=== PATIENT | male | born 2000 | race Caucasian/White ===

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

== ENCOUNTER 2021-01-04 03:52 | Emergency (ER) | payer OTHER ==
[~2021-01-04] VITALS: Ht 177.8 cm; Wt 81.8 kg
[~2021-01-04 03:52] MED LIST: IBUP80TA PO
[2021-01-04] MEDS ORDERED: NS 1,000 ML IV ONE (04:05)
[2021-01-04 04:20] LABS: BASO % 0.7 % (0.0-1.0); EOS # 0.1 10^3/uL (0.0-0.5); EOS % 2.2 % (0.0-3.0); HEMATOCRIT 39.4 % (42.0-52.0); HEMOGLOBIN 14.3 g/dl (13.5-17.5); LYMPH # 2.5 10^3/uL (1.5-5.0); LYMPH % 44.7 % (24.0-44.0); MEAN CORPUSCULAR HEMOGLOBIN 32.8 pg (27.0-33.0); MEAN CORPUSCULAR HGB CONC 36.3 g/dl (32.0-36.5); MEAN CORPUSCULAR VOLUME 90.4 fl (80.0-96.0); MONO # 0.7 10^3/uL (0.0-0.8); MONO % 12.2 % (2.0-8.0); NEUTROPHILS # 2.2 10^3/uL (1.5-8.5); NEUTROPHILS % 39.8 % (36.0-66.0); PLATELET COUNT, AUTOMATED 252 10^3/uL (150-450); RED BLOOD COUNT 4.36 10^6/uL (4.30-6.10); WHITE BLOOD COUNT 5.6 10^3/uL (4.0-10.0)
[2021-01-04 04:50] LABS: OSMOLALITY SERUM 299 MOSM/KG (275-295)
[2021-01-04 05:05] LABS: ACETAMINOPHEN LEVEL < 2.0 UG/ML (10.0-30.0); ALBUMIN 3.7 GM/DL (3.2-5.2); ALT/SGPT 40 U/L (12-78); BILIRUBIN,DIRECT < 0.1 MG/DL (0.0-0.2); BILIRUBIN,TOTAL 0.2 MG/DL (0.2-1.0); BLOOD UREA NITROGEN 15 MG/DL (7-18); CALCIUM LEVEL 8.8 MG/DL (8.5-10.1); CARBON DIOXIDE LEVEL 27 MEQ/L (21-32); CHLORIDE LEVEL 111 MEQ/L (98-107); CPK CREATINE PHOSPHOKINASE 637 U/L (39-308); CREATININE FOR GFR 1.05 MG/DL (0.70-1.30); ETHYL ALCOHOL (ETHANOL) < 0.003 % (0.000-0.010); GLUCOSE, FASTING 109 MG/DL (70-100); SALICYLATE LEVEL < 1.7 MG/DL (5.0-30.0); SODIUM LEVEL 144 MEQ/L (136-145); TOTAL PROTEIN 6.6 GM/DL (6.4-8.2)
--- NOTE | 2021-01-04 05:07 | REPVR ---
PROCEDURE INFORMATION: Exam: CT Head Without Contrast Exam date and time: 01/04/2021 4:14 AM Age: 20 years old Clinical indication: Injury or trauma; Fall; Blunt trauma (contusions or hematomas); Additional info: Drug overdose TECHNIQUE: Imaging protocol: Computed tomography of the head without contrast. Radiation optimization: All CT scans at this facility use at least one of these dose optimization techniques: automated exposure control; mA and/or kV adjustment per patient size (includes targeted exams where dose is matched to clinical indication); or iterative reconstruction. COMPARISON: No relevant prior studies available. FINDINGS: Brain: Normal. No hemorrhage. Unremarkable white matter. No mass effect. Cerebral ventricles: No ventriculomegaly. Paranasal sinuses: Visualized sinuses are unremarkable. No fluid levels. Mastoid air cells: Visualized mastoid air cells are well aerated. Bones/joints: Unremarkable. No acute fracture. Soft tissues: Unremarkable. IMPRESSION: No acute intracranial abnormality. Electronically signed by: Ivy Foster On 01/04/2021 05:06:53 AM
--- NOTE | 2021-01-04 05:08 | REPVR ---
PROCEDURE INFORMATION: Exam: CT Cervical Spine Without Contrast Exam date and time: 01/04/2021 4:14 AM Age: 20 years old Clinical indication: Injury or trauma; Fall; Blunt trauma; Additional info: Drug overdose TECHNIQUE: Imaging protocol: Computed tomography images of the cervical spine without contrast. Radiation optimization: All CT scans at this facility use at least one of these dose optimization techniques: automated exposure control; mA and/or kV adjustment per patient size (includes targeted exams where dose is matched to clinical indication); or iterative reconstruction. COMPARISON: No relevant prior studies available. FINDINGS: Bones/joints: No acute fracture. Normal alignment. Discs/Spinal canal/Neural foramina: No significant disc protrusion. No severe spinal canal stenosis. No significant neural foraminal narrowing. Lungs: Lung apices are normal. Soft tissues: Unremarkable. IMPRESSION: No acute findings. Electronically signed by: Ivy Foster On 01/04/2021 05:08:24 AM
[2021-01-04 06:41] LABS: AMPHETAMINES LEVEL URINE NEGATIVE (NEGATIVE); BARBITURATES URINE NEGATIVE (NEGATIVE); BENZODIAZEPINES URINE NEGATIVE (NEGATIVE); CANNABINOIDS URINE NEGATIVE (NEGATIVE); COCAINE METABOLITE URINE NEGATIVE (NEGATIVE); METHADONE URINE NEGATIVE (NEGATIVE); OPIATES URINE NEGATIVE (NEGATIVE); PHENCYCLIDINE URINE NEGATIVE (NEGATIVE)
[2021-01-04 12:31] VITALS: BP 152/72
--- NOTE | 2021-01-04 19:30 | ECGEPIP ---
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
== END 2021-01-04 13:16 | disposition home or self-care (01) ==
LOC: M ED 03:52
DX: F43.0 Acute stress reaction (principal); Z63.0 Problems in relationship with spouse or partner

== ENCOUNTER 2021-01-16 20:10 | Emergency (ER) | payer OTHER ==
[~2021-01-16] VITALS: Ht 177.8 cm; Wt 88.2 kg
[2021-01-16] MEDS ORDERED: SERT25TA85 PO (20:19)
[2021-01-16] MEDS ORDERED: NS 1,000 ML IV ONE (20:45)
[2021-01-16 21:24] LABS: AMPHETAMINES LEVEL URINE NEGATIVE (NEGATIVE); BARBITURATES URINE NEGATIVE (NEGATIVE); BENZODIAZEPINES URINE NEGATIVE (NEGATIVE); CANNABINOIDS URINE NEGATIVE (NEGATIVE); COCAINE METABOLITE URINE NEGATIVE (NEGATIVE); METHADONE URINE NEGATIVE (NEGATIVE); OPIATES URINE NEGATIVE (NEGATIVE); PHENCYCLIDINE URINE NEGATIVE (NEGATIVE)
[2021-01-16 21:29] LABS: HEMATOCRIT 42.3 % (42.0-52.0); HEMOGLOBIN 15.2 g/dl (13.5-17.5); MEAN CORPUSCULAR HEMOGLOBIN 32.1 pg (27.0-33.0); MEAN CORPUSCULAR HGB CONC 35.9 g/dl (32.0-36.5); MEAN CORPUSCULAR VOLUME 89.2 fl (80.0-96.0); PLATELET COUNT, AUTOMATED 315 10^3/uL (150-450); RED BLOOD COUNT 4.74 10^6/uL (4.30-6.10); WHITE BLOOD COUNT 8.1 10^3/uL (4.0-10.0)
[2021-01-16 22:00] LABS: ACETAMINOPHEN LEVEL < 2.0 UG/ML (10.0-30.0); ALBUMIN 4.2 GM/DL (3.2-5.2); ALT/SGPT 30 U/L (12-78); BILIRUBIN,DIRECT < 0.1 MG/DL (0.0-0.2); BILIRUBIN,TOTAL 0.4 MG/DL (0.2-1.0); BLOOD UREA NITROGEN 19 MG/DL (7-18); CALCIUM LEVEL 8.9 MG/DL (8.5-10.1); CARBON DIOXIDE LEVEL 29 MEQ/L (21-32); CHLORIDE LEVEL 105 MEQ/L (98-107); CREATININE FOR GFR 1.29 MG/DL (0.70-1.30); ETHYL ALCOHOL (ETHANOL) < 0.003 % (0.000-0.010); GLUCOSE, FASTING 85 MG/DL (70-100); POTASSIUM SERUM 3.9 MEQ/L (3.5-5.1); SALICYLATE LEVEL < 1.7 MG/DL (5.0-30.0); SODIUM LEVEL 140 MEQ/L (136-145); TOTAL PROTEIN 7.2 GM/DL (6.4-8.2)
[2021-01-16 22:44] LABS: RSV AMPLIFICATION NEGATIVE (NEGATIVE)
[2021-01-17 09:14] VITALS: BP 130/67
--- NOTE | 2021-01-18 05:42 | ECGEPIP ---
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
--- NOTE | 2021-01-19 12:48 | MHIPNPDOC ---
[facility] Progress Note Progress Note DATE OF SERVICE: 01/17/21 LATE ENTRY: 01/19/21 This scientific technical writer discussed patient's case with ED staff member. The patient presented with suicidal ideation without a plan, was under pressure due to multiple stressors, pressented with depression and anxiety and had taken extra medications after argument with . This scientific technical writer recommended admission but [facility] was at full capacity, so, patient was transferred to [facility] were he was accepted for admission. Vital Signs Vital Signs Date Time Temp Pulse Resp B/P (MAP) Pulse Ox O2 Delivery O2 Flow Rate FiO2 01/17/21 09:14 98.7 84 16 130/67 (88) 98 Room Air Allergies Coded Allergies: No Known Allergies (Unverified , 08/23/20) BENJAMIN MADDOX MD Jan 19, 2021 12:48
== END 2021-01-17 09:18 | disposition short-term general hospital (02) ==
LOC: M ED 20:10
DX: R45.851 Suicidal ideations (principal); T43.222A Poisoning by selective serotonin reuptake inhibitors, intentional self-harm, initial encounter; F33.9 Major depressive disorder, recurrent, unspecified; F17.210 Nicotine dependence, cigarettes, uncomplicated; Z79.899 Other long term (current) drug therapy

== ENCOUNTER 2021-03-28 22:22 | Emergency (ER) | payer OTHER ==
[~2021-03-28 22:22] MED LIST changes: +SERT25TA85 PO
--- OUTSIDE RECORDS SUMMARY | 2021-03-28 22:25 | CCD ---
Author Author [facility] Address Unknown Phone Unavailable Care Team Providers Care Contact Center Assistant Name Role Phone YG JALLOH MD Unavailable Unavailable BILALYG MD Unavailable Unavailable BILALYG MD Unavailable Unavailable BILALYG MD Unavailable Unavailable BILALYG MD Unavailable Unavailable BILALYG MD Unavailable Unavailable BILALEVELIOMACallie LAI Unavailable Unavailable BILAL, EVELIOMACallie LAI Unavailable Unavailable BILALEVELIOMACallie LAI Unavailable Unavailable BILAL, EVELIOMACallie LAI Unavailable Unavailable Rye Reyes Unavailable Unavailable Rey Reyes Unavailable Unavailable Rey Reyes Unavailable Unavailable Re-disclosure Warning The records that you are about to access may contain information from federally-assisted alcohol or drug abuse programs. If such information is present, then the following federally mandated warning applies: This information has been disclosed to you from records protected by federal confidentiality rules (42 CFR part 2). The federal rules prohibit you from making any further disclosure of this information unless further disclosure is expressly permitted by the written consent of the person to whom it pertains or as otherwise permitted by 42 CFR part 2. A general authorization for the release of medical or other information is NOT sufficient for this purpose. The Federal rules restrict any use of the information to criminally investigate or prosecute any alcohol or drug abuse patient.The records that you are about to access may contain highly sensitive health information, the redisclosure of which is protected by Article 27-F of the [facility] Public Health law. If you continue you may have access to information: Regarding HIV / AIDS; Provided by facilities licensed or operated by the [facility] Office of Mental Health; or Provided by the [facility] Office for People With Developmental Disabilities. If such information is present, then the following [facility] mandated warning applies: This information has been disclosed to you from confidential records which are protected by state law. State law prohibits you from making any further disclosure of this information without the specific written consent of the person to whom it pertains, or as otherwise permitted by law. Any unauthorized further disclosure in violation of state law may result in a fine or long term sentence or both. A general authorization for the release of medical or other information is NOT sufficient authorization for further disc losure. Allergies and Adverse Reactions Type Description Substance Reaction Status Data Source(s ) Drug allergy No Known Allergies No Known Allergies [facility] Encounters Encounter Providers Location Date Indications Data Source(s ) Inpatient Attender: YG JALLOH MDAdmitter: YG JALLOH MD 01/17/2021 09:16:00 AM EDT - 01/20/2021 02:00:00 PM EDT Suicidal ideation [facility] Suicidal ideation Patient discharged. Outpatient Attender: YG Chen tter: YG JALLOH MDConsultant: YG JALLOH MD 01/17/2021 09:16:00 AM EDT Suicidal ideation [facility] Suicidal ideation Outpatient Attender: YG Chen tter: YG JALLOH MDConsultant: YG JALLOH MD 01/17/2021 09:16:00 AM EDT Suicidal ideation [facility] Suicidal ideation Outpatient Attender: YG Chen tter: YG JALLOH MDConsultant: YG JALLOH MD 01/17/2021 09:16:00 AM EDT Suicidal ideation [facility] Suicidal ideation Outpatient Attender: Rey Reyes PAAdmitter: YG JALLOH MDConsultant: YG JALLOH MD 01/17/2021 09:16:00 AM EDT Suicidal ideation [facility] Suicidal ideation Immunizations Vaccine Date Status Description Data Source(s) COVID-19 VACCINE Moderna 10/13/2020 12:00:00 AM EDT completed [facility] Vaccine Series Complete: YESThis Data wa s Submitted to [facility] Via [employer]. COVID-19 VACCINE Moderna 09/15/2020 12:00:00 AM EDT completed [facility] Vaccine Series Complete: NOThis Data was Submitted to [facility] Via [employer]. Medications No Information Insurance Providers Payer name Policy type / Coverage type Policy ID Covered constitution party ID Covered constitution party's relationship to miner Policy Miner Plan Information SELF PAY [facility] [id number] SP [id number] [facility] ACTIVE DUTY [id number] SP [id number] Problems, Conditions, and Diagnoses Code Display Name Description Problem Type Effective Dates Data Source(s) F33.2 Major depressive disorder, recurrent sev ere without psychotic features F33.2 - Major depressive disorder, recurrent severe without psychotic features Diagnosis 01/17/2021 09:16:00 AM EDT [facility] 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 F41.8 - Other specified anxiety disorders Diagnosis 01/17/2021 09:16:00 AM EDT [facility] Surgeries/Procedures No Information Results ID Date Data Source [id number] 01/18/2021 02:37:00 PM EDT [facility] [address] [place] [address] HEALTH INFORMATION MANAGEMENT [facility] Psychosocial Summary : [id number] Signed Patient: Steve Galvin Acct:[id number] Unit : [id number] : 2000 Loc: IN Room/Bed: 920-A Age/Sex: 20 / M ADM Date: 01/17/21 cc: General/History - Presenting Problem Presenting Problem: Presenting Problem: Client is a 20-year-old male who presents to [facility] due to worsening depression and anxiety and feelings of being overwhelmed. Client was an argument with and attempted to take hard and 25 mg of sertraline to calm down, took himself to the hospital, hospital transferred to [facility]. Client reports feelings of depression, anxiety, and hopelessness, but reports feeling better at the time of writing. Client reports triggers being wifecontinuously threatening to leave him as a way to leverage his housing against him. Client states he may have reconciled, client is requesting discharge. Background: Client is currently in the , client has a , 20 years old, currently lives [facility]. Client was born and raised in [place], raised by parents, with no abuse or neglect, is a highschool graduate. - Collateral Information Collateral Information: Collateral:. Senior Database Engineer spoke to nurse to update chain of command of the client status. Senior Database Engineer attempted to call clients Captain Gilmore , left a message. Anahi Galvin. [phone] - Social/Educational History What is the Highest Grade You Completed in School?: 12 What is You Current/Last Place of Employment?: [employer] Do You Have Any Current Legal Issues?: No Any History?: Yes - Outside Activity Are You Involved in Any Community Service?: No Do You Consider Your self a Social Person?: Yes Any Interests or Hobbies you do for fun?: Games, Music, Travel Are you part of any pentecostal/spirtu al community?: Yes (Oriental Orthodox) - Current Living/Relationship History Current Living Arrangement: House Who Do You Live With?: OK to Return Home: Yes Weapons in household: No Currently in a Relationship?: Yes Any Children?: 0 - Family History Where Were You Born/Raised[place] Who Was in Home?: Mother How is Your Relationship Now with Family Members?: Good relationship. Was there Any Abuse/Neglect Growing Up?: No Psychiatric History - Primary Care/Psychiatrist Primary Care Physician: rachel mcdonald Psychiatric Treatment History: None Patient is currently on medications?: Yes Patient has a safe medication plan?: Yes Confirmation of safe medication administration completed? (: Yes MMSI-SA Referral Indicated: No MMSI-SA Referral Completed: No On Going Medical Issues: No Sexual/Substance History - Sexual History Sexual Orientation: Heterosexual Number of Sexual Partners in Last 12 Months: 1 Do You Ever Feel Your Sexual Behavior is Abnormal?: Yes (Low sex drive.) Do You Ever Feel Badly About Your Sexual Behavior?: No Any History of STDs?: None Have You Ever Been Tested for HIV?: Yes - Current Substance Abuse Current Substance Abuse Identified (w/in last 12 months): No - Past Substance Abuse History Past Substance Abuse Identified (greater than 12 months ago): Yes (ETOH) - Discussion The quantity frequency of alcohol consumed by pt in the na: N/A The overall severity of the substance use was discussed: N/A Negative physical,emotional,and occupational consequences of: N/A Trauma History - Abuse/Neglect/Exploitation Is there a history of Abuse or Neglect or Exploitation?: No Risk Assessment - Risk to Self Level of Risk to self: No Risk Contract for Safety: No Do you have thoughts of hurting yourself?: No Hearing Voices Telling Him/Her to Kill Self: No Family hx of suicide attempt: No - Risk to Others Evaluation of Risk: No Risk Do you have thoughts of hurting someone other than yourself?: No History of Violence: No Ever Have Thoughts of Setting Fires: No Does Client Have Fantasies/Obsessive Thoughts About Others: No - Reducing Risk Factors Factors Reducing Risk: Complies with Tx/Meds, No Substance Abuse Mental Status Treatment - Mental Status Mental Status: alert, oriented x 3, depressed affect Was Mini-Mental Status Exam Completed?: Yes If completed what was the Mini-Mental Status Exam Score?: 30 - Recommendations Recommendations for Treatment: Client will return to [facility] for post discharge mental health. Signed By:Vasquez Sanders <<Signature on File>> Signed Date/Time: 01/18/21 6748 Co-Signer: Tessa HICKMAN PAPER CUP HANDLE MACHINE OPERATOR Student Maura Co-Signed Date/Time: 01/19/21 0824 Initializing User: Vasquez LUCAS [id number] Name Value Range Interpretation Code Description Data Thelma rce(s) Supporting Document(s) ID Date Data Source [id number] 01/17/2021 06:09:00 [place] [address] HEALTH INFORMATION MANAGEMENT Consultation : [id number] Signed Patient: Steve Galvin Acct:[id number] Unit : [id number] : 2000 Loc: [facility] Room/Bed: 920-A Age/Sex: 20 / M ADM Date: 01/17/21 cc: Jose Cruz Caraballo MD,Rey PATTERSON [facility] Consult Date of Consult: 01/17/21 Reason for Consult: [facility] Attending requesting consult: Dr Paul Hospitalist attending in charge: Dr Caraballo History of Present Illness: Patient is a 20-year-old white male with sole medical history consistingof depression[place] Patient states that last night he got into an argument with his , felt unwell, took 5 times the dose that he normally takes of his sertraline, instead of 25 mg took 125 mg, when driving, took himself to the hospital at which point he was deemed to be unsafe to go home, [facility] and [facility]. Patient states that he did not try to kill himself or hurt himself but just was looking for help. Patient denies feeling physically unwell. In the admitting facility patient had blood work, vitals that were grossly within normal limits. Patient had an EKG which was slightly abnormal with inverted T-waves. QT interv al 390. Allergies No Known Allergies Allergy (Unverified 01/17/21 12:21) Home Medications Medication Instructions Recorded sertraline 25 mg tablet 25 mg PO DAILY 01/17/21 Social History [place] History of Smoking/Tobacco Use: Current Some Day Smoker Tobacco Product: Reports Cigarettes Alcohol use: Reports None Drug use: Reports None Occupation: Lives with: Reports Family PMH/PSH Medical History (Updated 01/17/21 @ 18:26 by LEONARDO Cerda) Depression with anxiety Family History (Updated 01/17/21 @ 18:22 by LEONARDO Cerda) Other Patient denies significant medical history Subjective-consult Review of Systems: ROS: Denies fevers, chills, eye pain, blurry vision, discharge from the eyes, denies earache, epistaxis, nasal congestion, chest pain, palpitations, syncope, cough, shortness of breath, belly pain, nausea, vomiting, diarrhea, dysuria, headache, dizziness, numbness, tingling, weakness, neck pain, back pain, bruising, itching, laceration, rash, anxiety, depression Objective Vitals and I O: I O (Last 24 Hours) 01/15/21 01/16/21 01/17/21 23:59 23:59 23:59 Other: Weight 87.4 kg Vital Signs (Last 8 Hours) Temp Pulse Resp BP Pulse Ox 01/17/21 11:55 98.4 F 65 16 127/60 97 Exam: General: Very pleasant, 20-year-old white male, nontoxic appearing, in no acute distress, alert and oriented, sitting on bed, speaking in complete sentences Head: Normocephalic, atraumatic Eyes: Conjunctiva clear, sclera non-icteric, EOM intact, PERRL Nose: External nose normal normal Ears: External ears normal Oropharynx: Non erythematous oropharynx. Patent airway Neck: Trachea midline, full ROM, supple Heart: regular rate and rhythm, no murmur or gallop Lungs: Clear to auscultation, moving air well Back: Full ROM Extremities: Full ROM. No edema noted Skin: Dry, intact, pink, warm Neurologic: Alert, gait normal, sensation normal, fluent speech, strength 5/5 all extremities, oriented x3, CN 2-12 normal Psychiatric: Mood appropriate but mildly depressed Consult Assessment/Plan (1) Depression with anxiety: Code(s): F41.8 - Other specified anxiety disorders Status: Acute Present on Admission: Yes Plan: Patient took 5 times the dose of his sertraline that he normally does after getting intoan argument with his . Patient states he did not try to kill himself however he was quite depressed and anxious. Patient drove around and ended up at the hospital seeking for help. [facility]. Patient will be stabilized and treated here. Patient had slightly abnormal EKG and I would recommend for this to be re-evaluated in a few days. Code Status Resuscitation Status (Nurse/Provider Doc-Not Order): Full Code MIPS REVIEWED Did you review MIPS this visit?: Yes Hospitalist Charges Worksheet Subject to change for billing criteria Did you complete your Hospitalist charges for this visit?: Yes Inpt Consult [id number] Cons Level 2: Yes Signed By:Rey Reyes <<Signature on File>> Signed Date/Time: 01/17/211827 Co-Signer: Jose Cruz Caraballo MD Co-Signed Date/Time: 01/17/211908 Initializing User: Rey PATTERSON 01/17/211808 08 08 Name Value Range Interpretation Code Description Data Thelma rce(s) Supporting Document(s) ID Date Data Source [id number] 01/16/2021 09:50:00 PM EDT [facility] Name Value Range Interpretation Code Description Data Thelma rce(s) Supporting Document(s) SARS coronavirus 2 RNA [Presence] in Res piratory specimen by NORI with probe detection NEGATIVE [facility] This lab was ordered by [facility] a nd reported by [facility]. ID Date Data Source [id number] 01/14/2021 10:15:00 AM EDT [facility] Name Value Range Interpretation Code Description Data Thelma rce(s) Supporting Document(s) SARS coronavirus 2 RNA Not Detected [facility] This lab was ordered by [facility] and reported by [facility]. ID Date Data Source [id number] 08/18/2020 12:43:00 PM EDT [facility] Name Value Range Interpretation Code Description Data Thelma rce(s) Supporting Document(s) SARS coronavirus 2 RNA Not Detected [facility] [place] This lab was ordered by [facility] and reported by [facility]. Procedure Social History No Information
[2021-03-28] MEDS ORDERED: ACETAMINOPHEN TAB 650MG DOSE (2X325MG) PO ONE (22:50)
[2021-03-28 23:35] LABS: HEMATOCRIT 43.7 % (42.0-52.0); HEMOGLOBIN 15.6 g/dl (13.5-17.5); MEAN CORPUSCULAR HEMOGLOBIN 32.1 pg (27.0-33.0); MEAN CORPUSCULAR HGB CONC 35.7 g/dl (32.0-36.5); MEAN CORPUSCULAR VOLUME 89.9 fl (80.0-96.0); PLATELET COUNT, AUTOMATED 392 10^3/uL (150-450); RED BLOOD COUNT 4.86 10^6/uL (4.30-6.10); WHITE BLOOD COUNT 10.5 10^3/uL (4.0-10.0)
[2021-03-29 00:05] LABS: AMPHETAMINES LEVEL URINE NEGATIVE (NEGATIVE); BARBITURATES URINE NEGATIVE (NEGATIVE); BENZODIAZEPINES URINE NEGATIVE (NEGATIVE); CANNABINOIDS URINE NEGATIVE (NEGATIVE); COCAINE METABOLITE URINE NEGATIVE (NEGATIVE); METHADONE URINE NEGATIVE (NEGATIVE); OPIATES URINE NEGATIVE (NEGATIVE); PHENCYCLIDINE URINE NEGATIVE (NEGATIVE)
[2021-03-29 00:15] LABS: ACETAMINOPHEN LEVEL < 2.0 UG/ML (10.0-30.0); ALBUMIN 4.4 GM/DL (3.2-5.2); ALT/SGPT 23 U/L (12-78); BILIRUBIN,DIRECT 0.1 MG/DL (0.0-0.2); BILIRUBIN,TOTAL 0.4 MG/DL (0.2-1.0); BLOOD UREA NITROGEN 14 MG/DL (7-18); CARBON DIOXIDE LEVEL 26 MEQ/L (21-32); CHLORIDE LEVEL 109 MEQ/L (98-107); CREATININE FOR GFR 1.19 MG/DL (0.70-1.30); ETHYL ALCOHOL (ETHANOL) < 0.003 % (0.000-0.010); GLUCOSE, FASTING 89 MG/DL (70-100); POTASSIUM SERUM 4.1 MEQ/L (3.5-5.1); SALICYLATE LEVEL < 1.7 MG/DL (5.0-30.0); SODIUM LEVEL 142 MEQ/L (136-145); TOTAL PROTEIN 7.5 GM/DL (6.4-8.2)
[2021-03-29 00:36] LABS: RSV AMPLIFICATION NEGATIVE (NEGATIVE)
--- OUTSIDE RECORDS SUMMARY | 2021-03-29 04:01 | CCD ---
Author Author [facility] Address Unknown Phone Unavailable Care Team Providers Care Credit Verification Clerk Name Role Phone YG JALLOH MD Unavailable Unavailable BILALYG MD Unavailable Unavailable BILALYG MD Unavailable Unavailable BILALYG MD Unavailable Unavailable BILALYG MD Unavailable Unavailable BILALYG MD Unavailable Unavailable BILALEVELIOMACallie LAI Unavailable Unavailable BILAL, EVELIOMACallie LAI Unavailable Unavailable BILALEVELIOMACallie LAI Unavailable Unavailable BILAL, EVELIOMACallie LAI Unavailable Unavailable Rey Reyes Unavailable Unavailable Rey [...] is protected by Article 27-F of the [place] [employer] law. If you continue you may have access to information: Regarding HIV / AIDS; Provided by facilities licensed or operated by the [place] Office of Mental Health; or Provided by the [place] Office for People With Developmental Disabilities. If such information is present, then the following [place] mandated warning applies: This information has been [...] law may result in a fine or usp sentence or both. A general authorization for the release of medical or other information is NOT sufficient authorization for further disc losure. Allergies and Adverse Reactions Type Description Substance Reaction Status Data Source(s ) Drug allergy No Known Allergies No Known Allergies [facility] Encounters Encounter Providers Location Date Indications Data Source(s ) Inpatient Attender: YG JALLOH MDAdmitter: YG JALLOH MD 01/17/2021 09:16:00 AM EDT - 01/20/2021 02:00:00 PM EDT Suicidal ideation [facility] Suicidal ideation Patient discharged. Outpatient Attender: YG [...] Complete: YESThis Data wa s Submitted to [facility] Via [employer]. COVID-19 VACCINE Moderna 09/15/2020 12:00:00 AM EDT completed [facility] Vaccine Series Complete: NOThis Data was Submitted to [facility] [employer]. Medications No Information Insurance Providers Payer name Policy type / Coverage type Policy ID Covered green party ID Covered green party's relationship to miner Policy Miner Plan Information SELF PAY [facility] [id number] SP [id number] [facility] ACTIVE DUTY [id number] SP [id number] Problems, Conditions, and Diagnoses Code Display Name Description Problem Type Effective Dates Data Source(s) F33.2 Major depressive disorder, recurrent sev ere without psychotic features F33.2 - Major depressive disorder, recurrent severe without psychotic features Diagnosis 01/17/2021 09:16:00 AM EDT [facility] 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 F41.8 - Other specified anxiety disorders Diagnosis 01/17/2021 09:16:00 AM EDT [facility] Surgeries/Procedures No Information Results ID Date Data Source [id number] 01/18/2021 02:37:00 PM EDT [facility] [address] [place] [address] HEALTH INFORMATION MANAGEMENT [facility] Psychosocial Summary : [id number] Signed Patient: Steve Galvin Acct:[id number] Unit : [id number] : 2000 Loc: IN Room/Bed: 920-A Age/Sex: 20 / M ADM Date: 01/17/21 cc: General/History - Presenting Problem Presenting Problem: Presenting Problem: Client is a 20-year-old male who presents to [facility] due to worsening depression and anxiety and feelings of being overwhelmed. Client was an argument with and attempted to take hard and 25 mg of sertraline to calm down, took himself to the hospital, hospital transferred to [facility]. Client reports feelings of depression, anxiety, and hopelessness, but reports feeling better at the time of writing. Client reports triggers being wifecontinuously threatening to leave him as a way to leverage his housing against him. Client states he may have reconciled, client is requesting discharge. Background: Client is currently in the , client has a , 20 years old, currently lives [facility]. Client was born and raised in [place], raised by parents, with no abuse or neglect, is a highschool graduate. - Collateral Information Collateral Information: Collateral:. Roadmaster spoke to nurse to update chain of command of the client status. Roadmaster attempted to call clients Captain Gilmore , left a message. Anahi Galvin. [phone] - Social/Educational History What is the Highest [...] Music, Travel Are you part of any catholic/spirtu al community?: Yes ([place]) - Current Living/Relationship History Current Living Arrangement: [...] for Treatment: Client will return to [facility] for post discharge mental health. Signed By:Vasquez Sanders <<Signature on File>> Signed Date/Time: 01/18/21 1525 Co-Signer: Tessa HICKMAN [employer] Student Maura Co-Signed Date/Time: 01/19/21 0824 Initializing User: Vasquez LUCAS [id number] Name Value Range Interpretation Code Description Data Thelma rce(s) Supporting Document(s) ID Date Data Source [id number] 01/17/2021 06:09:00 [place] [address] HEALTH INFORMATION MANAGEMENT Consultation : [id number] Signed Patient: Steve Galvin Acct:[id number] Unit : [id number] : 2000 Loc: [facility] Room/Bed: 920-A Age/Sex: 20 / M ADM Date: 01/17/21 cc: Jose Cruz Caraballo MD,Rey PATTERSON [facility] Consult Date of Consult: 01/17/21 Reason for [...] [facility]. Patient will be stabilized [...] charges for this visit?: Yes Inpt Consult [id number] Cons Level 2: Yes Signed By:Rey Reyes <<Signature on File>> Signed Date/Time: 01/17/211827 Co-Signer: Jose Cruz Caraballo MD Co-Signed Date/Time: 01/17/211908 Initializing User: Rey PATTERSON 01/17/211808 08 08 Name Value Range Interpretation Code Description Data Thelma rce(s) Supporting Document(s) ID Date Data Source [id number] 01/16/2021 09:50:00 PM EDT [facility] Name Value Range Interpretation Code Description Data Themla rce(s) Supporting Document(s) SARS coronavirus 2 RNA [Presence] in Res piratory specimen by NORI with probe detection NEGATIVE [facility] This lab was ordered by [facility] a nd reported by [facility]. ID Date Data Source [id number] 01/14/2021 10:15:00 AM EDT [facility] Name Value Range Interpretation Code Description Data Thelma rce(s) Supporting Document(s) SARS coronavirus 2 RNA Not Detected [facility] This lab was ordered by [facility] and reported by [facility]. ID Date Data Source [id number] 08/18/2020 12:43:00 PM EDT [facility] Name Value Range Interpretation Code Description Data Thelma rce(s) Supporting Document(s) SARS coronavirus 2 RNA Not Detected [facility] [place] This lab was ordered by [facility] and reported by [facility]. Procedure Social History No Information
[2021-03-30 00:15] VITALS: BP 135/68
--- NOTE | 2021-03-31 10:46 | ECGEPIP ---
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
== END 2021-03-30 00:18 ==
LOC: M ED 22:22
DX: F32.9 Major depressive disorder, single episode, unspecified (principal); R45.851 Suicidal ideations; Z63.5 Disruption of family by separation and divorce; F41.9 Anxiety disorder, unspecified